=== PATIENT | male | born 1980 | race African-American/Black ===

== ENCOUNTER 2021-08-03 10:30 | Day surgery (SDC) | payer BC ==
[2021-08-02 11:23] VITALS: BMI 29.2
[2021-08-03 12:44] VITALS: BP 109/68; PULSE 75; TEMP 98
== END 2021-08-03 12:49 | disposition home or self-care (01) ==
LOC: FASU-ENDO 10:30
PROVIDERS: ATTEND Internal Medicine Gastroenterology
PROC: 0DJD8ZZ Inspection of Lower Intestinal Tract, Via Natural or Artificial Opening Endoscopic (ICD-10-PCS; principal; 2021-08-03 11:36)
DX: K92.1 Melena (principal); K64.2 Third degree hemorrhoids